=== PATIENT | male | born 1995 | race Caucasian/White ===

== ENCOUNTER 2018-03-05 19:03 | Emergency (ER) | payer SELFPAY ==
--- NOTE | 2018-03-05 20:04 | RAD REPORT ---
EXAM DESCRIPTION: CT - Head Brain Wo Cont - 03/05/2018 7:57 pm CLINICAL HISTORY: SEIZURE COMPARISON: No comparisons TECHNIQUE: All CT scans are performed using dose optimization technique as appropriate and may inclu de automated exposure control or mA/KV adjustment according to patient size. FINDINGS: No intracranial hemorrhage, hydrocephalus or extra-axial fluid collection.No areas of brai n edema or evidence of midline shift. The paranasal sinuses and mastoids are clear. The calvarium is intact. IMPRESSION: No acute intracranial abnormality.
[2018-03-05 20:42] LABS: Absolute Lymphocytes (CBC) 1.1 K/uL (0.7-4.9); Absolute Monocytes 0.4 K/uL (0.1-1.3); Absolute Neutrophil 2.9 K/uL (1.8-8.0); Eosinophils % 0.7 % (0-4.4); Hematocrit 47.1 % (39.6-49.0); Lymphocytes % 23.9 % (15.3-44.8); MCH 32.1 pg (27.0-35.0); MCV 93.5 fL (80-100); Monocytes % 9.1 % (3.3-12.3); RBC Red Blood Cell Count 5.03 M/uL (4.33-5.43)
[2018-03-05 21:12] LABS: ALT/SGPT 22 U/L (12-78); AST/SGOT 11 U/L (15-37); Albumin 4.1 g/dL (3.4-5.0); Alkaline Phosphatase 56 U/L (45-117); BUN Blood Urea Nitrogen 10 mg/dL (7-18); Bicarbonate 27 mmol/L (21-32); Bilirubin Direct 0.1 mg/dL (0-0.2); Bilirubin Total 0.5 mg/dL (0.2-1.0); Glucose Level 94 mg/dL (74-106); Protein, Total 6.9 g/dL (6.4-8.2); Sodium Level 141 mmol/L (136-145)
[2018-03-05 21:50] LABS: Barbiturates NEGATIVE (NEGATIVE); Benzodiazepines NEGATIVE (NEGATIVE); Cocaine NEGATIVE (NEGATIVE); METHAMPHETAM NEGATIVE (NEGATIVE); Methadone NEGATIVE (NEGATIVE); Opiates NEGATIVE (NEGATIVE); Phencyclidine NEGATIVE (NEGATIVE); THC Cannibis NEGATIVE (NEGATIVE)
--- NOTE | 2018-03-05 22:02 | ER ---
Nurse's Notes [facility] Name: Bradford Berrios Age: 22 yrs Sex: Male : 1995 Arrival Date: 03/05/2018 Time: 19:05 Bed 5 Private MD: Diagnosis: Seizures Presentation: 03/05 19:16 Presenting complaint: Patient states: seizures x 6 months. 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 Last one was last Monday and decided to come today because he was off work. Transition of care: patient was not received from another setting of care. Onset of symptoms is unknown. Risk Assessment: Do you want to hurt yourself or someone else? Patient reports no desire to harm self or others. Initial Sepsis Screen: Does the patient meet any 2 criteria? No. Patient's initial sepsis screen is negative. Does the patient have a suspected source of infection? No. Patient's initial sepsis screen is negative. Care prior to arrival: None. 19:16 Method Of Arrival: Ambulatory ss 19:16 Acuity: EVANGELISTA 3 ss Triage Assessment: 19:30 General: Appears in no apparent distress. Behavior is calm, cooperative, appropriate rr5 for age. Historical: - Allergies: 19:18 No Known Allergies; ss - Home Meds: 19:18 None [Active]; ss - PMHx: 19:18 None; ss - PSHx: 19:18 None; ss - Immunization history:: Adult Immunizations up to date. - Social history:: Smoking status: Patient/guardian denies using tobacco. - Ebola Screening: : Patient denies exposure to infectious person Patient denies travel to an Ebola-affected area in the 21 days before illness onset. - Family history:: not pertinent. - Hospitalizations: : No recent hospitalization is reported. Screenin:38 Abuse screen: Denies threats or abuse. Denies injuries from another. Nutritional lp1 screening: No deficits noted. Tuberculosis screening: No symptoms or risk factors identified. Fall Risk None identified. Assessment: 19:30 General: Appears in no apparent distress. comfortable, Behavior is calm, cooperative, lp1 appropriate for age. Pain: Denies pain. Neuro: Level of Consciousness is awake, alert, obeys commands, Oriented to person, place, time, situation, Appropriate for age Liquid Sugar Fortifier are equal bilaterally Speech is normal, Facial symmetry appears normal, Pupils are PERRLA. Cardiovascular: Capillary refill < 3 seconds Pulses are all present. Respiratory: Airway is patent Respiratory effort is even, unlabored, Respiratory pattern is regular, symmetrical. GI: No signs and/or symptoms were reported involving the gastrointestinal system. : No signs and/or symptoms were reported regarding the genitourinary system. EENT: No signs and/or symptoms were reported regarding the EENT system. Derm: Musculoskeletal: Capillary refill < 3 seconds, Range of motion: intact in all extremities. 20:30 Reassessment: Patient appears in no apparent distress at this time. awaiting for urine rr5 specimen. Patient denies pain at this time. Patient states feeling better. Patient states symptoms have improved. 21:40 Reassessment: Patient appears in no apparent distress at this time. awaiting for report rr5 urine report Patient states feeling better. Patient states symptoms have improved. 22:15 Reassessment: Patient appears in no apparent distress at this time. discharge rr5 instruction and follow up explained with no question ask. Patient denies pain at this time. Patient states feeling better. Vital Signs: 19:18 Pulse 73; Resp 16; Temp 98.5(TE); Pulse Ox 98% on R/A; Weight 81.65 kg; Height 5 ft. 11 ss in. (180.34 cm); Pain 0/10; 19:25 BP 133 / 91; lp1 20:30 BP 125 / 76; Pulse 70; Resp 16; Pulse Ox 99% ; Pain 0/10; rr5 21:30 BP 122 / 65; Pulse 70; Resp 17; Pulse Ox 98% ; rr5 22:00 BP 124 / 80; Pulse 62; Resp 17; Pulse Ox 99% ; Pain 0/10; rr5 19:18 Body Mass Index 25.10 (81.65 kg, 180.34 cm) [place] Coma Score: 19:30 Eye Response: spontaneous(4). Verbal Response: oriented(5). Motor Response: obeys rr5 commands(6). Total: 15. ED Course: 19:05 Patient arrived in ED. am2 19:17 Triage completed. ss 19:18 Arm band placed on right wrist. ss 19:20 Dean Morel MD is Attending Physician. wa 19:20 Bed in low position. Call light in reach. Side rails up X 1. Side rails up X2. Adult w/ rr5 patient. Seizure precautions initiated. 19:50 Patient has correct armband on for positive identification. cafeteria monitor on. Pulse lp1 ox on. NIBP on. 19:[address] la 19:57 CT Head Brain wo Cont In Process Unspecified. EDMS 20:11 [place], RN is Primary Nurse. rr5 20:30 Inserted saline lock: 20 gauge in right forearm, using aseptic technique. Blood lp1 collected. 22:01 Pb Gonzalez MD is Referral Physician. nv 22:15 No provider procedures requiring assistance completed. IV discontinued. rr5 Administered Medications: No medications were administered Outcome: 22:01 Discharge ordered by . wa 22:15 Discharged to home ambulatory, with family. rr5 22:15 Condition: stable 22:15 Discharge instructions given to patient, Instructed on discharge instructions, follow up and referral plans. Demonstrated understanding of instructions, follow-up care. 22:23 Patient left the ED. rr5 Signatures: Dispatcher [employer] EDMO Fifi Norris RN RN Eri Jin RN RN lp1 Eugenio Hall Amanda am2 Dean Morel MD MD wa Roque, Raymond, RN RN rr5
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
[2018-03-05 22:14] LABS: Urine Blood NEGATIVE (NEG); Urine Glucose NEGATIVE (NEG); Urine Protein NEGATIVE (NEG); Urine pH 5.5 (5.0-7.0)
--- NOTE | 2018-03-06 12:02 | EKG ---
Test Date: 2018-03-05 Test Time: 20:22:02 Scaffold Builder: RR MEASUREMENT RESULTS: Intervals: Rate: 61 WI: 152 QRSD: 90 QT: 378 QTc: 380 [place]: P: 72 WI: 152 QRS: 75 T: 53 INTERPRETIVE STATEMENTS: Normal sinus rhythm Normal ECG No previous ECG available for comparison Electronically Signed On 03-06-18 12:00:32 PRESSER MACHINE by Jose Kuhn
== END 2018-03-05 22:23 | disposition home or self-care (01) ==
LOC: ER 19:03
DX: R56.9 Unspecified convulsions (principal)
CPT/HCPCS: 36415; 70450; 80048; 80076; 80307; 81003; 84443; 85025; 93005; 99285